=== PATIENT | female | born 1995 | race African-American/Black ===

== ENCOUNTER 2024-06-18 16:40 | Emergency (ER) | payer BC, OTHER ==
[~2024-06-18] VITALS: Ht 165.1 cm; Wt 65.8 kg
[2024-06-18] MEDS: ACETAMINOPHEN ES 500 MG TABLET PO ONE (17:00)
[2024-06-18] MEDS ORDERED: ACETAMINOPHEN ES 500 MG TABLET ONE (17:13)
[2024-06-18] MEDS ORDERED: NAPR-1164 PO (18:34)
[2024-06-18 19:17] VITALS: BP 132/72; TEMP 98.6; O2SAT 99
== END 2024-06-18 19:15 | disposition home or self-care (01) ==
LOC: ER 16:50
DX: S82.831A Other fracture of upper and lower end of right fibula, initial encounter for closed fracture (principal); F14.10 Cocaine abuse, uncomplicated; Z60.2 Problems related to living alone; V00.121A Fall from non-in-line roller-skates, initial encounter; Y93.51 Activity, roller skating (inline) and skateboarding; Y92.89 Other specified places as the place of occurrence of the external cause; Y99.8 Other external cause status
CPT/HCPCS: 73610-TC